=== PATIENT | female | born 1985 | race Caucasian/White ===

== ENCOUNTER 2018-03-25 22:36 | Emergency (ER) | payer BC, OTHER ==
[~2018-03-25] VITALS: Ht 170.2 cm; Wt 68.0 kg
[2018-03-25 22:38] VITALS: BP 146/90
[2018-03-25] MEDS ORDERED: D ME PO (22:38)
[2018-03-26] MEDS ORDERED: HYDROCODONE/ACETAMINOPHEN 5-325 MG TABLET PO ONE (01:00)
[2018-03-26] MEDS ORDERED: LIDOCAINE 1% 10 ML VIAL INJ ONE (01:00)
[2018-03-26] MEDS ORDERED: SODIUM CHLORIDE 0.9% 250 ML IRRIG SOLUTION BOTTLE IRRIG ONE (01:00)
== END 2018-03-26 03:38 | disposition home or self-care (01) ==
LOC: EMS 22:36
DX: S01.112A Laceration without foreign body of left eyelid and periocular area, initial encounter (principal); S61.412A Laceration without foreign body of left hand, initial encounter; Z88.0 Allergy status to penicillin; W25.XXXA Contact with sharp glass, initial encounter; Y93.89 Activity, other specified; Y92.89 Other specified places as the place of occurrence of the external cause; Y99.8 Other external cause status
CPT/HCPCS: 12013; 81025; 99283; J3490